=== PATIENT | male | born 1960 | race Asian ===

== ENCOUNTER 2025-05-04 14:11 | Outpatient (REF) | payer OTHER, SELFPAY ==
[2025-05-04 18:01] LABS: MANUAL DIFF FLAG NO
[2025-05-04 18:28] LABS: Alanine Aminotransferase 31 U/L (0-40); Albumin Level 4.4 g/dL (3.5-5.0); Alkaline Phosphatase 61 U/L (39-117); Anion Gap 12 (12-20); Aspartate Amino Transferase 23 U/L (5-37); Blood Urea Nitrogen 10 mg/dL (9-16); Calcium 10.0 mg/dL (8.4-10.2); Carbon Dioxide 29 mmol/L (22-29); Chloride 106 mmol/L (96-108); Cholesterol 138 mg/dL (<200); Estimated Glomerular Filt Rate > 60; HDL Cholesterol 23 mg/dL (>40); Magnesium 2.1 mg/dL (1.6-2.6); Potassium 3.8 mmol/L (3.3-5.1); Sodium 143 mmol/L (135-145); Total Protein 7.5 g/dL (6.5-8.0); Triglycerides 331 mg/dL (<150); Uric Acid 6.1 mg/dL (3.4-7.0)
[2025-05-04 18:53] LABS: Microalbum/Creatinine Ratio Ur 13.1 ug/mg cr (<30)
[2025-05-04 19:01] LABS: Folate 3.1 ng/mL (> or = 4.0); Hematocrit 45.7 % (42.0-52.0); Hemoglobin 15.0 g/dl (14.0-18.0); Imm Gran Abs Auto 0.02 X10*3/uL (0.00-0.03); Imm Gran Pct Auto 0.3 % (0.0-0.4); Lymphocytes Absolute Auto 2.8 X10*3/uL (1.2-4.9); Mean Corpuscular HGB Conc 32.8 g/dl (31.0-36.0); Mean Corpuscular Hemoglobin 32.1 pg (27.0-33.0); Mean Corpuscular Volume 97.6 fL (80.0-98.0); NRBC Abs Auto 0.000 X10*3/uL (0.0-0.012); NRBC Pct Auto 0.0 /100WBC (0.0-0.2); Platelet Count 307 X10*3/uL (160-400); Red Blood Count 4.68 X10*6/uL (4.60-5.80); Vitamin B12 333 pg/mL (200-900); White Blood Count 7.9 X10*3/uL (4.8-10.8)
[2025-05-04 19:59] LABS: Appearance Urine Clear; Glucose Urine UA Negative (Negative); PH 5.5 (5.0-9.0); Specific Gravity - Urine 1.020 (1.005-1.025); UMIC TRIGGER UACC YES
[2025-05-05 07:09] LABS: Total Hemoglobin (HGBA1C) 3901.2875 umol/L
[2025-05-05 08:28] LABS: HBS Num1 39.64 mIU/mL (0-7.99); HBsAGNum1 0.38 S/CO (0.00-0.99); Hepatitis B Surface Antigen Negative (Negative); ~HepC Num1 0.08 S/CO (0.00-0.79); ~Hepatitis B Surface Antibody REACTIVE (Nonreactive); ~Hepatitis C Antibody Nonreactive (Nonreactive)
[2025-05-08 15:43] LABS: VITAMIN D (1,25 OH) D3 42 pg/mL; Vit D (1,25-Dihydroxy) Total 42 pg/mL (18-72); Vitamin D (1,25 OH) D2 <8 pg/mL
[2025-05-09 00:18] LABS: PSA, Ultra Sensitive 2.36 ng/mL
== END 2025-05-04 14:12 | disposition home or self-care (01) ==
LOC: HO.HKASLDS 14:11
PROVIDERS: PCP Student in an Organized Health Care Education/Training Program; Visit Provider Student in an Organized Health Care Education/Training Program
DX: I10 Essential (primary) hypertension (principal); G47.33 Obstructive sleep apnea (adult) (pediatric); N40.0 Benign prostatic hyperplasia without lower urinary tract symptoms; R80.9 Proteinuria, unspecified; R10.13 Epigastric pain; E78.5 Hyperlipidemia, unspecified; Z12.5 Encounter for screening for malignant neoplasm of prostate; Z13.1 Encounter for screening for diabetes mellitus; Z99.89 Dependence on other enabling machines and devices
CPT/HCPCS: 36415; 80053; 80061; 81001; 81003; 82043; 82570; 82607; 82652; 82746; 83036; 83735; 84153; 84550; 85025; 86706; 86803; 87340; 96127

== ENCOUNTER 2025-05-04 14:11 | Outpatient (AMB) | payer OTHER, SELFPAY ==
--- NOTE | 2025-05-04 14:33 | A.OFFPC_ITS ---
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 The risks of an elevated result and the subsequent diagnostic path were discussed, and he confirmed his willingness to proceed. An informed discussion was held regarding colon cancer screening options, including colonoscopy and the Cologuard test. The patient opted for the Cologuard test, stating a preference for a noninvasive procedure. Patient was informed and verbally consented to the use of an ambient scribe for clinic note documentation during this visit. History of Present Illness The patient is a 65-year-old male presenting to [facility] after recently moving to the from [facility]. Essential Hypertension: The patient has a history of hypertension for about two years and takes aml odipine and telmisartan. He notes that his occasional dependent ankle swelling resolves when he is adherent to his antihypertensive medication. His daughter has observed intermittent episodes of high blood pressure, particularly after a night's sleep, which is classic for GOOD. A state patrol officer evaluated him last year, and an echocardiogram was reportedly normal, though reports are not available. Obstructive Sleep Apnea: The patient uses a CPAP machine for obstructive sleep apnea but has not had a repeat sleep study in 20 years and has been using the same device setting of 8 for the entire duration. Benign Prostatic Hyperplasia: The patient has a 20 to 30-year history of BPH with symptoms of hesitancy and dribbling. He denies urinary frequency, burning, or nocturia. He does not take medication for it, as his urologist in [place] advised it was unnecessary because his enlarged prostate was not pressing on his urethra. The patient is not bothered by his current symptoms. History of Tobacco Use: The patient is a former smoker, having smoked for 30 years and quit one to two years ago. He recalls having a CT scan of the chest three to four years ago, but it is believed not to have been a low-dose screening CT. Microalbuminuria: The patient reports an episode of microalbuminuria about six months ago. He associates this finding with the onset of his dependent edema. 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 History of Gout: He has a history of hyperuricemia and had one episode of gout about 10 years ago. He does not take medication for it and reports his uric acid level is controlled with diet. Dyslipidemia: The patient reports that his previous lab work has shown a low HDL and high triglycerides. Surgical History: - No surgical history reported. Medications: - Amlodipine for hypertension - Telmisartan for hypertension - Levosulpiride once or twice a week for functional dyspepsia - CPAP for obstructive sleep apnea Social History: - Tobacco Use: Patient is a former smoke r, having smoked for 30 years and quit 1-2 years ago. - Exercise: He walks for 30 to 45 minute s daily. 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 - Marital/Family Status: Patient's joaquín carissa, a critical care physician, was present for the visit. - Housing/Living Situation: He recently relocated [place] the [place] from [facility]. Family History: - Thyroid disease: Reports a family hist ory of thyroid issues. - Colon cancer: Denies a family history of colon cancer. Diagnostic Results: - Labs: Patient reports prior labs showe d low HDL and high triglycerides. - Labs: Reports a history of hyperuricem ia, but his uric acid is now controlled with diet. - Labs: Had an episode of microalbuminur ia six months ago. - Labs: Reports having had HIV and hepat itis panel testing within the last six months, though results are unavailable. - Echocardiogram: Performed last year an d was reportedly okay. - CT Chest: Performed 3-4 years ago, but was not a low-dose screening exam. Review of Systems - General: Denies pain. - Genitourinary: Reports urinary hesitan cy and dribbling. - Genitourinary: Denies urinary frequenc y, burning with urination, and nocturia. - Gastrointestinal: Reports bowel moveme nts three times a week, which is his baseline. - Gastrointestinal: Denies straining wit h bowel movements. - Cardiovascular: Reports occasional, de pendent ankle swelling which can be disproportional, especially after flights. - Cardiovascular: Denies pain on exertio n. 10-point ROS reviewed and negative excep t as noted in HPI Past Medical History - Hypertension for 2 years - Obstructive sleep apnea, using CPAP fo r 20 years - Benign prostatic hyperplasia for 20-30 years - Microalbuminuria, one episode 6 months ago - Former tobacco smoker (30 years, quit 1-2 years ago) - Dysfunctional dyspepsia - Gout, one episode 10 years ago - Hyperuricemia, diet-controlled - Dyslipidemia - Hepatitis B vaccination Health Maintenance - Colon Cancer Screening: Patient has ne cara had a colonoscopy and has opted for a Cologuard test. - Lung Cancer Screening: As a former smo ker with a 30-year history who quit 1-2 years ago, a low-dose CT scan of the chest will be ordered. - PSA Screening: Patient has consented t o PSA screening. - Vaccinations: Patient was vaccinated f or Hepatitis B in the past. - Lab Screening: Comprehensive labs incl uding CBC, CMP, A1c, lipid panel, vitamin D, B12, folate, HIV, and hepatitis panel will be ordered. Physical Exam General: Well-appearing, in no acute distress. Vital signs: Within normal limits. HEENT: Normocephalic, atraumatic. PERRLA, EOMI. Conjunctiva clear, sclera anicteric. Oropharynx clear, mucous membranes moist. TMs intact bilaterally. Neck: Supple, no lymphadenopathy, no thyromegaly, no JVD or carotid bruits. Cardiovascular: RRR, normal S1/S2, no murmurs, rubs, or gallops. Peripheral pulses 2+ and symmetric. Occasional dependent edema noted, particularly after flights, which resolves with antihypertensive medication. Respiratory: Lungs clear to auscultation bilaterally, no wheezes, rales, or rhonchi. Normal effort. Abdomen: Soft, non-tender, non-distended. Normoactive bowel sounds. No hepatosplenomegaly, no masses. MSK: Full range of motion, no joint swelling or deformity. Normal gait. Skin: Warm, dry, intact. No rashes, lesions, or pallor. Neuro: Alert and oriented x3. Cranial nerves II-XII intact. Strength 5/5 throughout. Sensation intact. Reflexes 2+ symmetric. Normal coordination and gait. Psych: Appropriate mood and affect. Normal judgment and insight. Plan 1. Primary Care Establishment And Health Maintenance - Order baseline laboratory studies incl uding a CBC, CMP, HbA1c, lipid panel, vitamin D, B12, folate, HIV, and hepatitis panel. - Order a Cologuard test for colorectal cancer screening. - Order a low-dose CT scan of the chest for lung cancer screening due to extensive smoking history. - Patient to provide a urine sample to t est for microalbuminuria. - Follow up in two weeks to review all r esults. 2. Obstructive Sleep Apnea - Provide a referral for a home sleep st udy and a consult with sleep medicine for evaluation and management, as the patient has been on the same CPAP settings for 20 years. - Per the daughter's request, the referr al will be directed to [facility] mon[facility]. 3. Benign Prostatic Hyperplasia - Order a PSA test after discussing the implications of the results with the patient. - Continue to monitor symptoms; no medic ation is indicated currently as symptoms are not bothersome. 4. Essential Hypertension - Continue current medications, amlodipi ne and telmisartan. - Monitor blood pressure and symptoms of dependent edema. 5. Microalbuminuria - Obtain a urine sample today to repeat testing for microalbuminuria. 6. Dyslipidemia - A lipid panel has been ordered as part of the initial blood work. 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 We reviewed his medical history, including hypertension, BPH, obstructive sleep apnea, and a history of smoking. I discussed the need for age- appropriate cancer screenings. We reviewed the options for colon cancer screening, and he preferred the non-invasive Cologuard test. Due to his significant smoking history, I recommended a low-dose CT of the chest for lung cancer screening. I also discussed PSA screening for his BPH; after explaining the implications of an elevated result, he understood and consented to the test. We addressed his obstructive sleep apnea, noting he has used the same CPAP settings for 20 years, and I provided referrals for both a home sleep study and a sleep medicine co nsultation. A comprehensive panel of labs was ordered to establish a baseline and to investigate his reported microalbuminuria and dyslipidemia. I advised him to follow up in two weeks to review all results. Patient Instructions - Proceed to the lab to have your blood drawn for the ordered tests. - Please provide a urine sample before y ou leave. - A Cologuard kit for colon cancer christo zimmer will be mailed to your home. - You will receive referrals for a low-d ose CT lung scan, a home sleep study, and a consultation with a sleep medicine specialist. - Your daughter can take the sleep medic ine referral to [facility]monology to schedule an appointment. - Please continue taking your current me dications for blood pressure and dyspepsia as directed. - Schedule a follow-up appointment in tw o weeks to review your test results. - If you have past medical records, such as from your state patrol officer, please ensure our staff receives them to scan into your chart. Medical Decision Making The patient is a 65-year-old male, who is a physician, presenting to [facility] with multiple chronic conditions. The visit focused on addressing overdue health maintenance screenings and re-evaluating his chronic disease management. Given his age and lack of prior screening, a Cologuard test was ordered for colorectal cancer screening, which was his preferred non-invasive option. Due to his 30-year smoking history, even though he quit within the last 2 years, a low-dose CT chest for lung cancer screening is indicated and was ordered. His obstructive sleep apnea is likely inadequately managed, evidenced by his report of using the same CPAP settings for 20 years and his daughter's observation of nocturnal hypertension. Therefore, a referral to sleep medicine and an order for a new home sleep study are necessary to optimize his therapy. His BPH is symptomatic with hesitancy and dribbling but is not bothersome and lacks red-flag symptoms like nocturia. A PSA was ordered following a shared decision-making discussion about the risks and benefits. Comprehensive labs were ordered to establish a new baseline for this practice, including a lipid profile for his reported dyslipidemia and a urinalysis with microalbumin to re-evaluate his previous abnormal finding. The patient will follow up in 2 weeks to discuss all results and adjust the care plan accordingly. Total time spent caring for the patient today was 30 minutes. This includes time spent before the visit reviewing the chart, time spent documenting, and time spent reviewing laboratory results, diagnostic imaging, medications, performing a medically necessary evaluation, counseling on diagnoses, care coordination.. [facility] Medical History (Updated 05/04/25 @ 15:04 by Kapil Montoya MD) Screening for lung cancer GOOD (obstructive sleep apnea) Sleep apnea Family History (Updated 05/04/25 @ 14:40 by Vishal Chaudhary MA) Mother Diabetes Hypertension Father Hypertension Social History (Updated 05/04/25 @ 14:40 by Vishal Chaudhary MA) Housing: House Alcohol intake: never Patient Tobacco Use Status: Former Tobacco user e-Cigarette/Vaping Use: Never Used service: No Current occupational status: employed (self employed) Current occupation: physician Current occupational exposures/hazards: No Cognitive needs: No Hearing needs: No Vision needs: No Questionnaire PHQ-9 Over the last 2 weeks, how often have you been bothered by any of the following problems? 1. Little interest or pleasure in doing things: not at all 2. Feeling down, depressed, or hopeless: not at all 3. Trouble falling or staying asleep, or sleeping too much: not at all 4. Feeling tired or having little energy: not at all 5. Poor appetite or overeating: not at all 6. Feeling bad about yourself - or that you are a failure or have let yourself or your family down: not at all 7. Trouble concentrating on things, such as reading the newspaper or watching television: not at all 8. Moving or speaking so slowly that other people could have noticed. Or the opposite - being so fidgety or restless that you have been moving around a lot more than usual: not at all 9. Thoughts that you would be better off or of hurting yourself in some way: not at all Total score: 0 Depression Screening Interpretation: Negative Depression Screening Done: Yes [id number] - PHQ-9 Billing: Yes Source: Developed by Drs. Davi Turpin, Maria Elena Goldsmith, Billy Brunner and colleagues, with an educational katt from [employer]. Thrive Questionnaire Date Thrive assessed: 05/04/25 I am a: Patient What is your living situation today?: I have a steady place to live Within the past 12 months, did the food you bought not last and you didn't have the money to get more?: Never true Within the past 12 months, did you worry whether your food would run out before you got money to buy more?: Never true Do you have trouble paying for medicines?: No Do you have trouble getting transportation to medical appointments?: No Do you have trouble paying your heating and electricity bill?: No Do you have trouble taking care of your child, family member or friend?: No Are you currently unemployed and looking for a job?: Yes Are you interested in more education?: No Please select the resources that you would like help with: None Currently or been in a relationship where the following occur: No concerns reported THRIVE Score: 0 AUDIT C Alcohol Use Questionnaire (AUDIT-C) 1. How often do you have a drink containing alcohol?: Never Total Score: 0 AUBREY-7 AMB Questionnaire AUBREY-7 Date AUBREY - 7 assessed: 05/04/25 Feeling nervous, anxious, or on edge: 0 = Not at all Not being able to stop or control worryin = Not at all Worrying too much about different things: 0 = Not at all Trouble relaxin = Not at all Being so restless that it is hard to sit still: 0 = Not at all Becoming easily annoyed or irritable: 0 = Not at all Feeling afraid as if something awful might happen: 0 = Not at all Total AUBREY-7 score (0-4 normal; 5-9 mild; 10-14 moderate; 15-21 severe): 0 Source: Developed by Drs. Davi Turpin, Maria Elena Goldsmith, Billy Brunner and colleagues, with an educational katt from [employer]. Physical exam (Primary Care) Vital Signs: Last Vital Signs Temp 97.5 F 05/04/25 14:41 Pulse 84 05/04/25 14:41 Resp 16 05/04/25 14:41 BP 138/88 05/04/25 14:41 Pulse Ox 95 05/04/25 14:41 BMI result Body Mass Index 25.0 Tobacco/Smoking Status: Tobacco use Status Tobacco use date assessed 05/04/25 05/04/25 14:43 Patient Tobacco Use Status Former Tobacco user 05/04/25 14:43 e-Cigarette/Vaping Use Never Used 05/04/25 14:43 PHQ-9: PHQ-9 Score PHQ-9: Total score 0 05/04/25 15:11 Depression Screening Interpretation: Negative Thrive Assessment: Date of Thrive Assessment Date Thrive assessed 05/04/25 05/04/25 14:36 Currently or been in a relationship where the following occur: No concerns repo rted Coding Level of Care Code New Pt Level 4 (66212) Diagnoses GOOD (obstructive sleep apnea) G47.33 Benign prostatic hyperplasia N40.0 Essential hypertension I10 Microalbuminuria R80.9 Dyslipidemia E78.5 Additional Codes PHQ-9 - 43635 - PHQ-9 Billing: Yes ([id number]) Assessment & Plan Assessment & Plan (1) GOOD (obstructive sleep apnea): Code(s): G47.33 - Obstructive sleep apnea (adult) (pediatric) Category: Medical (2) Benign prostatic hyperplasia: Code(s): N40.0 - Benign prostatic hyperplasia without lower urinary tract symptoms (3) Essential hypertension: Code(s): I10 - Essential (primary) hypertension (4) Microalbuminuria: Code(s): R80.9 - Proteinuria, unspecified (5) Dyslipidemia: Code(s): E78.5 - Hyperlipidemia, unspecified Plan Orders: Orders Comprehensive Met. Panel Today Z13.9 - Encounter for screening, unspecified Vitamin D 1,25 dihydroxy Today Z13.9 - Encounter for screening, unspecified Magnesium Today Z13.9 - Encounter for screening, unspecified Lipid Panel Today Z13.9 - Encounter for screening, unspecified Hepatitis B Surface Antibody Today Z13.9 - Encounter for screening, unspecified RT home sleep study Today G47.30 - Sleep apnea, unspecified PSA, Ultra Sensitive Today Z13.9 - Encounter for screening, unspecified Microalbumin, Random (w Creat) Today Z13.9 - Encounter for screening, unspecified Complete Blood Count Auto Diff Today Z13.9 - Encounter for screening, unspecified Hemoglobin A1c Today Z13.9 - Encounter for screening, unspecified Uric Acid Today Z13.9 - Encounter for screening, unspecified UA CC w/rflx Micro + Cult Today Z13.9 - Encounter for screening, unspecified Vitamin B12 and Folate Today Z13.9 - Encounter for screening, unspecified Hepatitis C Antibody Today Z13.9 - Encounter for screening, unspecified Hepatitis B Surface Antigen Today Z13.9 - Encounter for screening, unspecified Referrals Cologuard Test Z12.11 - Encounter for screening for malignant neoplasm of colon, Z12.12 - Encounter for screening for malignant neoplasm of rectum Sleep Medicine Referral G47.33 - Obstructive sleep apnea (adult) (pediatric) Pulmonology Referral Z12.2 - Encounter for screening for malignant neoplasm of respiratory organs
[2025-05-04 14:41] VITALS: BP 138/88; PULSE 84; RESP 16; TEMP 36.4; O2SAT 95; BMI 25.0
== END 2025-05-04 15:04 | disposition home or self-care (01) ==
LOC: HO.HMCFMS 14:12
PROVIDERS: Visit Provider Student in an Organized Health Care Education/Training Program
DX: G47.33 Obstructive sleep apnea (adult) (pediatric) (principal); N40.0 Benign prostatic hyperplasia without lower urinary tract symptoms; I10 Essential (primary) hypertension; R80.9 Proteinuria, unspecified; E78.5 Hyperlipidemia, unspecified

== ENCOUNTER 2025-05-20 12:58 | Outpatient (REF) | payer OTHER, SELFPAY ==
[2025-05-20 18:06] LABS: Appearance Urine Cloudy; Glucose Urine UA Negative (Negative); PH 5.0 (5.0-9.0); Specific Gravity - Urine 1.020 (1.005-1.025)
== END 2025-05-20 12:59 | disposition home or self-care (01) ==
LOC: HO.HKASLDS 12:58
PROVIDERS: PCP Student in an Organized Health Care Education/Training Program; Visit Provider Student in an Organized Health Care Education/Training Program
DX: R31.9 Hematuria, unspecified (principal)
CPT/HCPCS: 81003

== ENCOUNTER 2025-05-20 12:58 | Outpatient (AMB) | payer OTHER, SELFPAY ==
--- NOTE | 2025-05-20 13:02 | A.OFFPC_ITS ---
Vital Signs 05/20/25 13:06 Height 6 ft 1.5 in Weight 193 lb 8 oz BMI 25.2 BP 128/77 Blood Pressure Location Rt brachial Position Sitting Respiration 18 Pulse 79 Pulse Source Monitor Temp 97.6 F Temp Source Oral Pulse Oximetry (%) 96 Intake Visit Reasons: 2 wk f/u - lab review Intake Note: lab review Infrastructure Technician Required: No Accompanied by: Daughter Allergies No Known Allergies Allergy (Verified 05/20/25 13:06) Medication List - Last Reconciled 05/20/25 by Kapil Montoya MD telmisartan 40 mg PO DAILY Tobacco use date assessed: 05/04/25 Dental Screening Dental Screen Date: 05/04/25 HPI HPI Comments History of Present Illness Details History of Present Illness The patient is a 65-year-old male presenting for a follow-up to review lab resu lts and manage chronic conditions. Microscopic hematuria: A recent urinalysis revealed a trace amount of blood. The patient denies any prior history of this occurring. Dyslipidemia: Recent non-fasting laboratory results showed a low HDL and high triglycerides of 331 mg/dL. The patient reports a previous fasting triglyceride level of 175 mg/dL. Folate deficiency: Recent lab work indicated low folate levels. Chronic low back pain: The patient has a history of chronic lower back pain for approximately 15 years, attributed to a mild slipped disc at L4-L5 diagnosed by an MRI about five years ago. The discomfort manifests as muscle stiffness and is exacerbated by prolonged standing or walking upright, which causes him to lean forward. The symptoms are relieved when he sits down and do not cause him pain when sitting or lying down, and he does not require pain medication. Hypertension: The patient manages his blood pressure with amlodipine 5 mg and telmisartan 40 mg. He reports taking the medication as needed, approximately once a week, based on daily home blood pressure monitoring. He notes a preference for telmisartan, as losartan was not effective for him in the past. Medications: - Amlodipine 5 mg and Telmisartan 40 mg, taken as needed approximately once a week for hypertension. Social History: - Diet: Patient is reported to be very m indful of his diet. - Functional Status: The patient has dif ficulty standing for long periods due to back pain and finds it easier to walk when leaning forward on a cart. Diagnostic Results: - Laboratory results: Recent labs review ed, showing normal white blood cells, red blood cells, hemoglobin, platelets, sodium, potassium, chloride, and renal function. - Hemoglobin A1c: 4.7%. - Urinalysis: Positive for a trace of bl ood. - PSA: Normal. - Folate: Low. - Lipid panel (non-fasting): Low HDL and high triglycerides at 331 mg/dL; patient reports a prior fasting level of 175 mg/dL. - Prior Imaging: An MRI of the lumbar sp ine performed about 5 years ago showed a mild slip disc in L4-5. Past Medical History - Chronic low back pain with a history o f a mild slipped disc at L4-L5, diagnosed via MRI approximately 5 years ago. - Hypertension, managed with as-needed t elmisartan and amlodipine. Health Maintenance - The patient will receive the flu and T dap vaccines today. - Will follow up to determine why the pa murielnt has not been contacted for the low-dose CT scan referral. [facility], LAT[facility] Medical History (Updated 05/20/25 @ 15:38 by Kapil Montoya MD) History of smoking Hypertension Disc disease, degenerative, lumbar or lumbosacral Chronic lower back pain Folate deficiency Dyslipidemia Microscopic hematuria Hematuria Screening for lung cancer GOOD (obstructive sleep apnea) Sleep apnea Family History Mother Diabetes Hypertension Father Hypertension Social History (Updated 05/20/25 @ 13:06 by Vishal Chaudhary CMA) Housing: House Alcohol intake: never Patient Tobacco Use Status: Former Tobacco user e-Cigarette/Vaping Use: Never Used service: No Current occupational status: employed (self employed) Current occupation: physician Current occupational exposures/hazards: No Cognitive needs: No Hearing needs: No Vision needs: No Questionnaire Thrive Questionnaire Date Thrive assessed: 05/04/25 I am a: Patient What is your living situation today?: I have a steady place to live Within the past 12 months, did the food you bought not last and you didn't have the money to get more?: Never true Within the past 12 months, did you worry whether your food would run out before you got money to buy more?: Never true Do you have trouble paying for medicines?: No Do you have trouble getting transportation to medical appointments?: No Do you have trouble paying your heating and electricity bill?: No Do you have trouble taking care of your child, family member or friend?: No Are you currently unemployed and looking for a job?: Yes Are you interested in more education?: No Please select the resources that you would like help with: None Currently or been in a relationship where the following occur: No concerns reported THRIVE Score: 0 AUBREY-7 AMB Questionnaire AUBREY-7 Date AUBREY - 7 assessed: 05/04/25 Source: Developed by Drs. Davi Turpin, Maria Elena Goldsmith, Billy Brunner and colleagues, with an educational katt from [employer]. Review of Systems Narrative Review of Systems - Musculoskeletal: Reports chronic lower back pain and stiffness which worsens with prolonged standing and is relieved by sitting. - Genitourinary: Reports a recent lab finding of trace blood in urine; denies any prior history of hematuria. - Constitutional: Denies ever having had the flu. 10-point ROS reviewed and negative except as noted in HPI Physical exam (Primary Care) Vital Signs: Last Vital Signs Temp 97.6 F 05/20/25 13:06 Pulse 79 05/20/25 13:06 Resp 18 05/20/25 13:06 BP 128/77 05/20/25 13:06 Pulse Ox 96 05/20/25 13:06 BMI result Body Mass Index 25.2 Tobacco/Smoking Status: Tobacco use Status Tobacco use date assessed 05/04/25 05/20/25 13:04 Patient Tobacco Use Status Former Tobacco user 05/20/25 13:06 e-Cigarette/Vaping Use Never Used 05/20/25 13:06 Thrive Assessment: Date of Thrive Assessment Date Thrive assessed 05/04/25 05/20/25 13:04 Currently or been in a relationship where the following occur: No concerns reported Narrative Physical Exam General: Well-appearing, in no acute distress. Vital signs: Within normal limits. HEENT: Normocephalic, atraumatic. PERRLA, EOMI. Conjunctiva clear, sclera anicteric. Oropharynx clear, mucous membranes moist. TMs intact bilaterally. Neck: Supple, no lymphadenopathy, no thyromegaly, no JVD or carotid bruits. Cardiovascular: RRR, normal S1/S2, no murmurs, rubs, or gallops. Peripheral pulses 2+ and symmetric. No edema. Respiratory: Lungs clear to auscultation bilaterally, no wheezes, rales, or rhonchi. Normal effort. Abdomen: Soft, non-tender, non-distended. Normoactive bowel sounds. No hepatosplenomegaly, no masses. MSK: Full range of motion, no joint swelling or deformity. Normal gait. Reports chronic lower back pain due to a mild slipped disc at L4-5, causing difficulty standing for long periods and requiring leaning forward when walking. Skin: Warm, dry, intact. No rashes, lesions, or pallor. Neuro: Alert and oriented x3. Cranial nerves II-XII intact. Strength 5/5 throughout. Sensation intact. Reflexes 2+ symmetric. Normal coordination and gait. Psych: Appropriate mood and affect. Normal judgment and insight. Coding Level of Care Code Est Pt Level 3 (03136) Diagnoses Microscopic hematuria R31.29 Dyslipidemia E78.5 Folate deficiency E53.8 Chronic lower back pain M54.50; G89.29 Disc disease, degenerative, lumbar or lumbosacral M51.37 Hypertension I10 History of smoking Z87.891 Assessment & Plan Assessment & Plan (1) Microscopic hematuria: Code(s): R31.29 - Other microscopic hematuria Category: Medical (2) Dyslipidemia: Code(s): E78.5 - Hyperlipidemia, unspecified Category: Medical (3) Folate deficiency: Code(s): E53.8 - Deficiency of other specified B group vitamins Category: Medical (4) Chronic lower back pain: Code(s): M54.50 - Low back pain, unspecified; G89.29 - Other chronic pain Category: Medical (5) Disc disease, degenerative, lumbar or lumbosacral: Code(s): M51.37 - Other intervertebral disc degeneration, lumbosacral region Category: Medical (6) Hypertension: Code(s): I10 - Essential (primary) hypertension Category: Medical (7) History of smoking: Code(s): Z87.891 - Personal history of nicotine dependence Category: Social Hx Plan Consent The patient verbally consented to a repeat urinalysis to investigate the finding of microscopic hematuria. He also agreed to proceed with an MRI of his lumbar spine to further evaluate his chronic back pain. Patient was informed and verbally consented to the use of an ambient scribe for clinic note documentation during this visit. Plan 1. Microscopic Hematuria - A repeat urinalysis was ordered for today to confirm the finding of trace blood. - If the hematuria persists on the repeat test, a referral to Urology will be initiated. 2. Folate Deficiency - Advised the patient to supplement with hkwa-jtm-gcmvhoq folate or a standard multivitamin. 3. Dyslipidemia - Recommended continued lifestyle changes to address low HDL and high triglycerides. 4. Chronic Low Back Pain - An order for an MRI of the lumbar spine will be placed to re-evaluate his condition, as the last imaging was five years ago. 5. Hypertension - A prescription for telmisartan 40 mg will be sent to the pharmacy for a 30-day supply, to be taken as needed. Discussion Notes I reviewed the patient's recent lab work, which was largely reassuring with normal CBC, metabolic panel, and A1c. We discussed the new finding of trace blood in his urine, and despite a normal PSA, we agreed to repeat the urinalysis today to confirm the finding. I explained that if hematuria is persistent, a referral to urology would be necessary. We also addressed his low folate, low HDL, and high non-fasting triglycerides. I advised he could take an oykq-gxm-npimtpq folate supplement or a multivitamin and should continue his lifestyle changes for his lipids. Regarding his chronic low back pain, which limits his ability to stand for long periods, I'm ordering a new MRI of the lumbar spine since his last one was five years ago. For his hypertension medication, I am prescribing a 30-day supply of his pr eferred agent, telmisartan 40 mg, to continue his as-needed regimen. We discussed immunizations, and he will receive the Tdap and flu vaccines. We also clarified the referral process for the low-dose CT scan and will ensure there is follow-up on why he has not yet been contacted. Patient Instructions - Please provide a urine sample today so we can recheck for blood in the urine. - Begin taking an fywv-yjj-wcojcdm folate supplement or a daily multivitamin for your low folate level. - Continue your healthy diet and lifestyle changes to help manage your cholesterol. - We have ordered a new MRI of your lower back. Please follow up to get this scheduled. - A 30-day supply of telmisartan 40 mg has been sent to [facility]. You can continue taking it once a week as needed based on your blood pressure readings, but wait to fill this new prescription until you run out of your current supply. - We will arrange for you to get a Tdap (tetanus) and flu shot today. - We will check on the status of your referrals for the low-dose CT scan. Please call our office if you are not contacted soon. Medical Decision Making The patient is a 65-year-old male presenting for review of recent lab results. The lab work was notable for a new finding of microscopic hematuria. While his PSA was normal, the hematuria warrants further investigation, starting with a repeat urinalysis to confirm the finding. If it persists, a urology consultation will be necessary to rule out significant genitourinary pathology. His labs also revealed low folate, low HDL, and high non-fasting triglycerides. The folate deficiency will be addressed with OTC supplementation. Management of his dyslipidemia will continue to focus on lifestyle modification, especially given his already mindful diet and the non-fasting status of the triglyceride sample. The patient's chronic low back pain, which causes functional limitation, is associated with a known history of a mild slipped disc at L4-L5. Given that the previous imaging was five years ago, a new lumbar spine MRI is clinically indicated to assess for any interval changes and to guide future management. His hypertension is well-controlled with an unconventional as-needed regimen of telmisartan/amlodipine. A new prescription for telmisartan, his preferred agent, will be provided to ensure continuity of care. Preventative care was also addressed, including arranging for Tdap and influenza vaccinations and ensuring follow-up on outstanding referrals for lung cancer and sleep apnea screenings. Total Time Statement 20min Total time spent caring for the patient today includes pre-visit chart review, documentation, review of laboratory and diagnostic imaging results, medication reconciliation, medically necessary evaluation, counseling on diagnoses, care coordination, ordering appropriate tests and medications, review of tests performed by other providers, reporting test results to the patient, and communication with other healthcare providers. Orders: Orders UA CC w/rflx Micro + Cult Today R31.9 - Hematuria, unspecified MR lumbar spine wo con Today M51.37 - Other intervertebral disc degeneration, lumbosacral region Medications: New telmisartan 40 mg PO DAILY 30 tabs 0RF
[2025-05-20 13:06] VITALS: BP 128/77; PULSE 79; RESP 18; TEMP 36.4; O2SAT 96; BMI 25.2
== END 2025-05-20 13:25 | disposition home or self-care (01) ==
LOC: HO.HMCFMS 12:59
PROVIDERS: PCP Student in an Organized Health Care Education/Training Program; Visit Provider Student in an Organized Health Care Education/Training Program
DX: R31.29 Other microscopic hematuria (principal); E78.5 Hyperlipidemia, unspecified; E53.8 Deficiency of other specified B group vitamins; M54.50 Low back pain, unspecified; G89.29 Other chronic pain; M51.379 Other intervertebral disc degeneration, lumbosacral region without mention of lumbar back pain or lower extremity pain; I10 Essential (primary) hypertension; Z87.891 Personal history of nicotine dependence